=== PATIENT | male | born 1980 | race Caucasian/White ===

== ENCOUNTER 2018-08-01 04:15 | Emergency (ER) | payer OTHER, SELFPAY ==
[2018-08-01] MEDS ORDERED: cloNIDine HCl 0.1 MG TAB ONE (05:30)
--- NOTE | 2018-08-01 06:19 | ER ---
Nurse's Notes [facility] Name: Tom Benitez Age: 38 yrs Sex: Male : 1980 Arrival Date: 08/01/2018 Time: 04:18 Bed 6 Private MD: Diagnosis: Non-toxic occupational exposure to light condensate Presentation: 08/01 04:20 Presenting complaint: Patient states: while at work pt was exposed to condensate from ak1 an open flange. condensate has a pH 11. pt denies pain at exposure site to right side of face. 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 pt exposed at 0300. pt denies chest pain, denies SOB. no resp distress noted at this time. Transition of care: patient was not received from another setting of care. Onset of symptoms was August 01, 2018. Risk Assessment: Do you want to hurt yourself or someone else? Patient reports no desire to harm self or others. Initial Sepsis Screen: Does the patient meet any 2 criteria? No. Patient's initial sepsis screen is negative. Does the patient have a suspected source of infection? No. Patient's initial sepsis screen is negative. Care prior to arrival: safety shower for 30 minuets. 04:20 Method Of Arrival: EMS: [facility] ak1 04:20 Acuity: JOHANNY 2 ak1 Triage Assessment: 04:23 General: Appears in no apparent distress. Behavior is calm, cooperative, anxious. Pain: ak1 Denies pain. EENT: Sclera/Cornea are reddened in outer aspect of conjuctiva of right eye, iris of right eye, inner aspect of conjuctiva of right eye, outer aspect of conjuctiva of left eye, iris of left eye and inner aspect of conjunctiva of left eye Nares are clear Oral mucosa is moist. Neuro: Level of Consciousness is awake, alert, obeys commands, Oriented to person, place, time, situation, Application Analyst are equal bilaterally Moves all extremities. Gait is steady, Speech is normal, Facial symmetry appears normal, Pupils are PERRLA. Cardiovascular: No deficits noted. Respiratory: No deficits noted. GI: No signs and/or symptoms were reported involving the gastrointestinal system. : No signs and/or symptoms were reported regarding the genitourinary system. Derm: No signs and/or symptoms reported regarding the dermatologic system. Musculoskeletal: No signs and/or symptoms reported regarding the musculoskeletal system. Historical: - Allergies: 04:23 No Known Allergies; ak1 - Home Meds: 04:23 clonidine HCl 0.1 mg Oral tab 1 tab PRN [Active]; lisinopril 20 mg Oral tab 1 tab once ak1 daily [Active]; - PMHx: 04:23 Hypertension; ak1 - PSHx: 04:23 None; ak1 - Immunization history:: Adult Immunizations unknown. - Social history:: Smoking status: Patient/guardian denies using tobacco. - Ebola Screening: : No symptoms or risks identified at this time. - Family history:: not pertinent. - Hospitalizations: : No recent hospitalization is reported. Screenin:24 Abuse screen: Denies threats or abuse. Denies injuries from another. Nutritional ak1 screening: No deficits noted. Tuberculosis screening: No symptoms or risk factors identified. Fall Risk None identified. Assessment: 04:25 Reassessment: Patient appears in no apparent distress at this time. No changes from ak1 previously documented assessment. see triage assessment. 04:34 [facility] and chemical make up of Condensate pt was ak1 exposed to. 04:54 Reassessment: Patient appears in no apparent distress at this time. No changes from ak1 previously documented assessment. Patient denies pain at this time. 06:37 Reassessment: Patient appears in no apparent distress at this time. No changes from ak1 previously documented assessment. Patient and/or family updated on plan of care and expected duration. Pain level reassessed. Patient is alert, oriented x 3, equal unlabored respirations, skin warm/dry/pink. Vital Signs: 04:19 BP 168 / 110; Pulse 108; Resp 18; Temp 98.6(O); Pulse Ox 96% on R/A; Weight 115.67 kg ak1 (R); Height 6 ft. 0 in. (182.88 cm); Pain 0/10; 04:54 BP 158 / 120; Pulse 105; Resp 12; Pulse Ox 97% on R/A; ak1 05:03 BP 155 / 116; Pulse 102; Resp 20; Pulse Ox 97% on R/A; ak1 06:36 BP 151 / 101; Pulse 104; Resp 20; Temp 98.5; Pulse Ox 97% on R/A; Pain 0/10; ak1 04:19 Body Mass Index 34.58 (115.67 kg, 182.88 cm) ak1 ED Course: 04:18 Patient arrived in ED. ak1 04:19 Walt Resendiz MD is Attending Physician. rn 04:19 Ashley Quintero, RN is Primary Nurse. ak1 04:19 Arm band placed on Patient placed in an exam room, on a stretcher, on ship liner, ak1 on pulse oximetry, Patient notified of wait time. 04:22 Triage completed. ak1 04:25 Patient has correct armband on for positive identification. Bed in low position. Call ak1 light in reach. Side rails up X2. customer marketing assistant on. Pulse ox on. NIBP on. 04:25 No provider procedures requiring assistance completed. ak1 06:36 Patient did not have IV access during this emergency room visit. ak1 Administered Medications: 05:27 Drug: cloNIDine 0.2 mg Route: PO; ao 06:37 Follow up: Response: No adverse reaction ak1 Outcome: 06:18 Discharge ordered by . rn 06:36 Discharged to home ambulatory. ak1 06:36 Condition: stable 06:36 Discharge instructions given to patient, Instructed on discharge instructions, follow up and referral plans. Demonstrated understanding of instructions, follow-up care. 06:44 Patient left the ED. jb4 Signatures: Walt Resendiz MD MD rn Krenek, Amber, RN RN ak1 Harsha Mathis RN Anirudh Watson RN RN jb4
--- NOTE | 2018-08-01 06:19 | EDPHYS ---
Physician Documentation [facility] Name: Tom Benitez Age: 38 yrs Sex: Male : 1980 Arrival Date: 08/01/2018 Time: 04:18 Bed 6 Private MD: ED Physician Walt Resendiz HPI: 08/01 04:35 This 38 yrs old Male presents to ER via EMS with complaints of exposure to rn light condensate. 04:35 Type of Exposure: splash injury. Area of exposure: face. Context: The problem was rn sustained at work. Onset: The symptoms/episode began/occurred just prior to arrival. Symptoms: The patient does not have any acute complaints. The patient has not experienced similar symptoms in the past. The patient has not recently seen a physician. Reports at work, possibly exposed to "light condensate", co-worker opening flange, states felt condensate on right brow/side of face, was wearing protective equipment including goggles, no eye injury, no sob, no cough, denies even skin irritation or pain. Has hx of HTN and HLD, supposed to be on clonidine but has not taken it. Denies any symptoms at this time.. Historical: - Allergies: 04:23 No Known Allergies; ak1 - Home Meds: 04:23 clonidine HCl 0.1 mg Oral tab 1 tab PRN [Active]; lisinopril 20 mg Oral tab 1 tab once ak1 daily [Active]; - PMHx: 04:23 Hypertension; ak1 - PSHx: 04:23 None; ak1 - Immunization history:: Adult Immunizations unknown. - Social history:: Smoking status: Patient/guardian denies using tobacco. - Ebola Screening: : No symptoms or risks identified at this time. - Family history:: not pertinent. - Hospitalizations: : No recent hospitalization is reported. ROS: 04:35 Constitutional: Negative for fever, chills, and weight loss, Eyes: Negative for injury, rn pain, redness, and discharge, ENT: Negative for injury, pain, and discharge, Neck: Negative for injury, pain, and swelling, Cardiovascular: Negative for chest pain, palpitations, and edema, Respiratory: Negative for shortness of breath, cough, wheezing, and pleuritic chest pain, Abdomen/GI: Negative for abdominal pain, nausea, vomiting, diarrhea, and constipation, MS/Extremity: Negative for injury and deformity, Skin: Negative for injury, rash, and discoloration, Neuro: Negative for headache, weakness, numbness, tingling, and seizure. Exam: 04:35 Constitutional: This is a well developed, well nourished patient who is awake, alert, rn and in no acute distress. Appears anxious. Head/Face: Normocephalic, atraumatic. Eyes: Pupils equal round and reactive to light, extra-ocular motions intact. Lids and lashes normal. Conjunctiva and sclera are non-icteric and not injected. Cornea within normal limits. Periorbital areas with no swelling, redness, or edema. ENT: Nares patent. No nasal discharge, no septal abnormalities noted. Oropharynx with no redness, swelling, or masses, exudates, or evidence of obstruction, uvula midline. Mucous membranes moist. Neck: Trachea midline, no thyromegaly or masses palpated, and no cervical lymphadenopathy. Supple, full range of motion without nuchal rigidity, or vertebral point tenderness. No Meningismus. Cardiovascular: Regular rate and rhythm. No gallops, murmurs, or rubs. No pulse deficits. Respiratory: Lungs have equal breath sounds bilaterally, clear to auscultation and percussion. No rales, rhonchi or wheezes noted. No increased work of breathing, no retractions or nasal flaring. Abdomen/GI: Soft, non-tender, with normal bowel sounds. No distension or tympany. No guarding or rebound. No evidence of tenderness throughout. Skin: Warm, dry with normal turgor. Normal color with no rashes, no lesions, and no evidence of cellulitis. MS/ Extremity: Pulses equal, no cyanosis. Neurovascular intact. Full, normal range of motion. Equal circumference. Neuro: Awake and alert, GCS 15, oriented to person, place, time, and situation. Cranial nerves II-XII grossly intact. Motor strength 5/5 in all extremities. Sensory grossly intact. Vital Signs: 04:19 BP 168 / 110; Pulse 108; Resp 18; Temp 98.6(O); Pulse Ox 96% on R/A; Weight 115.67 kg ak1 (R); Height 6 ft. 0 in. (182.88 cm); Pain 0/10; 04:54 BP 158 / 120; Pulse 105; Resp 12; Pulse Ox 97% on R/A; ak1 05:03 BP 155 / 116; Pulse 102; Resp 20; Pulse Ox 97% on R/A; ak1 06:36 BP 151 / 101; Pulse 104; Resp 20; Temp 98.5; Pulse Ox 97% on R/A; Pain 0/10; ak1 04:19 Body Mass Index 34.58 (115.67 kg, 182.88 cm) ak1 MDM: 04:19 Patient medically screened. rn 06:15 Data reviewed: vital signs, nurses notes, and as a result, I will discharge patient. rn Counseling: I had a detailed discussion with the patient and/or guardian regarding: the historical points, exam findings, and any diagnostic results supporting the discharge/admit diagnosis, the need for outpatient follow up, to return to the emergency department if symptoms worsen or persist or if there are any questions or concerns that arise at home. Special discussion: I discussed with the patient/guardian in detail that at this point there is no indication for admission to the hospital. It is understood, however, that if the symptoms persist or worsen the patient needs to return immediately for re-evaluation. ED course: Pt still asymptomatic, states didn't take BP meds today, no skin burning, no inhalation symptoms, no eye complaints. Will dc home with instructions to take his prescribed BP meds. . Administered Medications: 05:27 Drug: cloNIDine 0.2 mg Route: PO; ao 06:37 Follow up: Response: No adverse reaction ak1 Disposition: 08/01/18 06:18 Discharged to Home. Impression: Non-toxic occupational exposure to light condensate. - Condition is Stable. - Medication Reconciliation Form, Thank You Letter, Antibiotic Education, Prescription Opioid Use form. - Work release form (08/01/18 06:46). mw2 - Follow up: Private Physician; When: As needed; Reason: Recheck today's complaints, Re-evaluation by your physician. - Problem is new. - Symptoms have improved. Signatures: Walt Resendiz MD MD rn Krenek, Amber RN RN ak1 Harsha Mathis RN Anirudh Watson RN RN jb4 Dannie Guardado mw2 Corrections: (The following items were deleted from the chart) 06:44 06:18 08/01/2018 06:18 Discharged to Home. Impression: Non-toxic occupational exposure jb4 to light condensate. Condition is Stable. Forms are Medication Reconciliation Form, Thank You Letter, Antibiotic Education, Prescription Opioid Use. Follow up: Private Physician; When: As needed; Reason: Recheck today's complaints, Re-evaluation by your physician. Problem is new. Symptoms have improved. rn
== END 2018-08-01 06:44 | disposition home or self-care (01) ==
LOC: ER 04:15
DX: Z77.098 Contact with and (suspected) exposure to other hazardous, chiefly nonmedicinal, chemicals (principal); I10 Essential (primary) hypertension
CPT/HCPCS: 99284